=== PATIENT | female | born 2005 | race Caucasian/White ===

== ENCOUNTER 2024-03-05 03:06 | Emergency (ER) | payer BC, SELFPAY ==
[2024-03-05 03:08] VITALS: BP 153/95; PULSE 118; RESP 18; TEMP 37.5; O2SAT 98; BMI 37.4
[2024-03-05 03:18] VITALS: BP 153/95; PULSE 101; O2SAT 100
[2024-03-05] MEDS: ONDANSETRON 4MG/2ML VIAL 4 MG IV (03:40)
[2024-03-05] MEDS: LACTATED RINGERS 1000ML 1,000 ML 999 ML IV (03:40)
[2024-03-05 03:47] LABS: Basophils # 0.2 K/mm3 (0-0.2); Basophils % 3.2 % (0.1-2.0); Eosinophils # 0.1 K/mm3 (0.0-0.4); Eosinophils % 1.4 % (0.1-12.0); Lymphocytes # 2.5 K/mm3 (0.7-4.5); Lymphocytes % 43.1 % (10-50); Mean Corpuscular HGB Conc 35.2 g/dL (31.8-35.4); Mean Corpuscular Hemoglobin 30.7 pg (27.0-31.2); Mean Corpuscular Volume 87.2 fl (81-99); Mean Platelet Volume 7.4 fl (7.4-10.4); Monocytes # 0.4 K/mm3 (0.1-1.0); Monocytes % 7.2 % (1.7-9.3); Neutrophils # 2.6 K/mm3 (1.8-7.8); Neutrophils % 45.1 % (37.0-80.0); Platelet Count 195 K/mm3 (142-424); Red Blood Count 4.25 M/mm3 (4.20-5.40); Red Cell Distribution Width 14.2 % (11.5-17.5); White Blood Count 5.8 K/mm3 (4.8-10.8)
[2024-03-05 03:50] LABS: Albumin Level 3.7 g/dl (3.5-5.0); Chloride 109 mmol/L (98-107)
[2024-03-05 03:51] LABS: Potassium 3.4 mmoL/L (3.5-5.1); Sodium 135 mmol/L (136-145)
[2024-03-05 03:52] LABS: Microscopic, Urine URINE MICROSCOPIC (MICROSCOPIC)
[2024-03-05 03:53] LABS: Alanine Aminotransferase 28 U/L (12-78); Anion Gap 7.4 mEq/L (5-15); Aspartate Amino Transferase 28 U/L (14-36); Blood Urea Nitrogen 9 mg/dl (7-17); Carbon Dioxide 22 mmol/L (22.0-30.0); Creatinine Clearance Estimated 232 mL/min (50-200); Estimated Glomerular Filt Rate 126 ml/min (>60); GFR (African American) 153 ML/MIN (>60)
[2024-03-05 03:54] LABS: Alkaline Phosphatase 64 U/L (38-126); Bilirubin,Total 0.7 mg/dl (0.2-1.3); Calcium 8.4 mg/dl (8.4-10.2); Glucose 93 mg/dl (74-100); Total Protein,Serum 6.4 g/dl (6.3-8.2)
[2024-03-05 03:54] LABS: Bilirubin,Urine Negative (Negative); Blood, Urine Negative (Negative); Glucose,Urine (UA) Negative (Negative); Ketones,Urine Negative (Negative); Leukocyte Esterase,Urine 1+ (Negative); Nitrate,Urine Negative (Negative); Protein,Urine Negative (Negative); Specific Gravity, Urine 1.015 (1.005-1.030)
[2024-03-05 03:56] LABS: Appearance,Urine Slightly Cloudy (Clear); Color,Urine Yellow (Yellow)
[2024-03-05 03:56] LABS: HCG Qualitative, Serum Negative (Negative)
[2024-03-05 04:00] VITALS: BP 138/86; PULSE 97; O2SAT 99
--- NOTE | 2024-03-05 04:01 | [facility].EDGENADL ---
Discharge Plan Disposition Patient Disposition: Home, Self-Care Condition: Good Referrals Follow up/Referrals: Provider,Referral, [Primary Care Provider] - See instructions Activity Restrictions/Add. Instructions Additional Instructions/Restrictions: You were evaluated in the ER. You are appropriate for discharge at this time. Please make an appointment with your primary care physician for reevaluation in 2-3 days. Take Tylenol, ibuprofen if needed for pain. Do not exceed the recommended dose on the bottle. Drink plenty of water. Return to the ER with new, worsening, or otherwise concerning symptoms. Clinical Impressions Clinical Impression: Left flank pain Print Language Print Language: [place] Discharge ED Provider: Juni Mckeon General Adult HPI General Chief complaint: Back Pain/Injury Stated complaint: dizzy, cold chills, abd pain, weakness Time Seen by Provider: 03/05/24 03:11 Mode of Arrival: Ambulatory Source of Information: Patient Limitations: No Limitations Description of Symptoms (Recalled from ER Triage Doc. 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 Patient states that she reports that she completed antibiotics approximately one week ago and has had lightheadedness, weakness, nausea, chills, and left lower abdominal tenderness and left flank intermittent sharp pain. Patient reports she has never had dysuria, but continues to have dark colored urine. History of Present Illness HPI narrative: 19-year-old female presents to the ER for concerns of generalized malaise, left flank pain. Patient denies any abdominal pain but points to her left lateral flank and left low back indicating where she has intermittent sharp pains. Patient states she has been having chills but no documented fevers. She is worried she is dehydrated because her urine has been dark. No other associated symptoms. No other concerns at this time. Related Data Allergies Allergy/AdvReac Type Severity Reaction Status Date / Time No Known Allergies Allergy Verified 03/05/24 03:31 [facility] Disclaimer: The information contained in this section may have been updated after the patient was seen, as this information can be updated by other users. Medical History (Updated 03/05/24 @ 05:55 by Juni Mckeon MD) Hypertension Social History Smoking Status: Never smoker alcohol intake: never current occupational status: other Travel in the last 8 weeks: None ROS Obtained: Yes All systems reviewed & no additional complaints except as documented Constitutional Constitutional: Denies chills, Denies fever(s), Denies headache(s) and Denies weakness Eyes Eyes: Denies change in vision ENT Ears, Nose, Mouth, and Throat: Denies dizziness, Denies headache(s), Denies nasal congestion and Denies sore throat Cardiovascular Cardiovascular: Denies chest pain, Denies dyspnea and Denies leg edema Respiratory Respiratory: Denies cough and Denies dyspnea Gastrointestinal Gastrointestingal: Denies constipation, diarrhea, nausea or vomiting Genitourinary Female Genitourinary: Denies dysuria and Reports flank pain Musculoskeletal Musculoskeletal: Denies arthralgias, Denies myalgias, Denies numbness and Denies tingling Integumentary/Breasts Skin/Breast: Denies change in pigmentation Neurologic Neurologic: Denies dizziness, Denies headache(s), Denies numbness, Denies tingling and Denies weakness Physical Exam General General appearance: alert, in no apparent distress and obese Head Head exam: atraumatic and normocephalic Eye Eye exam: Present PERRL and EOMI ENT ENT exam: Present mucous membranes moist Neck Neck exam: Present normal inspection and full ROM Chest Chest inspection: Present symmetric chest wall rise Respiratory Respiratory exam: Present normal lung sounds bilaterally; Absent respiratory distress, wheezes or stridor Cardiovascular Cardiovascular exam: Present normal rhythm and tachycardia Abdominal Exam Abdominal exam: Present soft; Absent distention, tenderness, guarding or rebound Extremities Exam Extremities exam: Present full ROM Back Exam Back exam: Present full ROM and tenderness (Left lumbar paraspinal discomfort without findings of injury); Absent CVA tenderness (R) or CVA tenderness (L) Neurological Exam Neurological exam: Present alert and oriented X3; Absent motor sensory deficit Psychiatric Psychiatric exam: Present normal affect and normal mood Skin Skin exam: Present warm and dry Medical Decision Making Binh Inquiry Pt receiving controlled substance: No Vital Signs: 03/05/24 03:08 03/05/24 03:18 03/05/24 04:00 Temperature 99.5 F Temperature Source Oral Pulse Rate 101 H 97 H Pulse Rate [Left Radial] 118 H Respiratory Rate 18 Blood Pressure 153/95 H 138/86 Blood Pressure [Right Arm] 153/95 H Blood Pressure Mean 112 114 Blood Pressure Mean [Right Arm] 114 Blood Pressure Source [Right Arm] Automatic Cuff Blood Pressure Position [Right Arm] Sitting 02 Sat by Pulse Oximetry 98 100 99 Oxygen Delivery Method Room Air Lab Data Lab Results 03/05/24 03:38: WBC 5.8, RBC 4.25, Hgb 13.0, Hct 37.0, MCV 87.2, MCH 30.7, MCHC 35.2, RDW 14.2, Plt Count 195, MPV 7.4, Neut % (Auto) 45.1, Lymph % (Auto) 43.1, [place] % (Auto) 7.2, Eos % (Auto) 1.4, Baso % (Auto) 3.2 H, Neut # (Auto) 2.6, Lymph # (Auto) 2.5, [place] # (Auto) 0.4, Eos # (Auto) 0.1, Baso # (Auto) 0.2, Sodium 135 L, Potassium 3.4 L, Chloride 109 H, Carbon Dioxide 22, Anion Gap 7.4, BUN 9, Creatinine 0.60, Estimated Creat Clear 232, Estimated GFR 126, Est GFR ( Amer) 153, Glucose 93, Calcium 8.4, Total Bilirubin 0.7, AST 28, ALT 28, Alkaline Phosphatase 64, Total Protein 6.4, Albumin 3.7, Globulin 2.7, Albumin/Globulin Ratio 1.4, Serum HCG, Qual Negative 03/05/24 03:48: Urine Color Yellow, Urine Appearance Slightly cloudy, Urine pH 6.0, Ur Specific Wrens 1.015, Urine Protein Negative, Urine Glucose (UA) Negative, Urine Ketones Negative, Urine Blood Negative, Urine Nitrate Negative, Urine Bilirubin Negative, Urine Urobilinogen 1.0, Ur Leukocyte Esterase 1+ A, Urine RBC None, Urine WBC 3-5, Ur Squamous Epith Cells 3-5, Urine Bacteria 1+ 03/05/24 03:38 03/05/24 03:38 Orders (Tests/Meds): ED MEDICATIONS Generic Name Dose Route Start Last Admin Trade Name Freq PRN Reason Stop Dose Admin Sodium Chloride 10 ml 03/05/24 04:26 03/05/24 04:27 Sodium Chloride 0.9% 10ml Syr (Rad Only) IV 04/04/24 04:25 10 ml NEEDED PRN Administration Maintain IV Site Discontinued Medications Generic Name Dose Route Start Last Admin Trade Name Freq PRN Reason Stop Dose Admin Lactated Ringer's 1,000 mls @ 999 mls/hr 03/05/24 03:23 03/05/24 03:40 Lactated Ringer's 1000 Ml Bag IV 03/05/24 04:23 999 mls/hr .Q1H1M ONE Administration Iopamidol 75 ml 03/05/24 04:26 03/05/24 04:27 Iopamidol-370 (76%);100ml Bottle IV 03/05/24 04:27 75 ml ONCE ONE Administration Ondansetron HCl 4 mg 03/05/24 03:23 03/05/24 03:40 Ondansetron 4mg/2ml Vial IV 03/05/24 03:24 4 mg ONCE ONE Administration ORDERS Category Date Time Status CT abdomen pelvis w con Stat Cat Scan 03/05/24 04:03 Completed CBC w/Auto Diff [Complete Blood Count Auto Diff] Stat Lab 03/05/24 03:38 Completed CMP [Comprehensive Metabolic Panel] Stat Lab 03/05/24 03:38 Completed HCG Qualitative, Serum Stat Lab 03/05/24 03:38 Completed Urinalysis and Microscopic Stat Lab 03/05/24 03:48 Completed Urine Culture Stat Micro 03/05/24 03:48 Received Medical Decision Narrative: In summary, this 18-year-old female presents to the emergency department today with left flank pain. On initial evaluation patient is hemodynamically stable, afebrile, patient has mild lumbar left lumbar paraspinal tenderness to palpation, no obvious CVA tenderness, patient does not have localizing tenderness, rebound, or guarding in the abdomen. Differential diagnosis includes but is not limited to urinary tract infection, pyelonephritis, kidney stone, considered colitis, electrolyte abnormality, dehydration, viral syndrome. Based on these concerns, I ordered serum labs, urine studies, CT imaging. Patient received IV fluids. Labs personally reviewed demonstrate no leukocytosis or anemia, platelets normal, no actionable abnormalities on CMP, good kidney function, no findings of liver dysfunction, UA contaminated with squamous cells, not consistent with findings of infection with only 1+ bacteria, trace whites, and negative nitrates. CT abdomen personally interpreted does not demonstrate any acute intra-abdominal pathology. See radiology read for final interpretation. On reassessment patient reports feeling improved. Her tachycardia has improved and she reports improvement in pain. Workup is reassuring though I do not have an exact cause of her discomfort. I believe she is appropriate for discharge at this time. Patient was given instructions on symptomatic management, follow up instructions, and return precautions for the emergency department. Patient indicated understanding and was discharged in stable condition. Critical Care Critical Care Time Critical Care Time: No
--- NOTE | 2024-03-05 04:03 | CT_ITS ---
PROCEDURE INFORMATION: Exam: CT Abdomen And Pelvis With Contrast Exam date and time: 03/05/2024 4:09 AM Age: 18 years old Clinical indication: Abdominal pain; Additional info: Left flank pain TECHNIQUE: Imaging protocol: Computed tomography of the abdomen and pelvis with contrast. Radiation optimization: All CT scans at this facility use at least one of these dose optimization techniques: automated exposure control; mA and/or kV adjustment per patient size (includes targeted exams where dose is matched to clinical indication); or iterative reconstruction. Contrast material: ISOVUE; Contrast volume: 75 ml; Contrast route: IV; COMPARISON: No relevant prior studies available. FINDINGS: Liver: Mild fatty infiltration of the liver along the falciform ligament. Gallbladder and biliary ducts: Contracted gallbladder. Pancreas: Normal. No ductal dilation. Spleen: Normal. No splenomegaly. Adrenal glands: Normal. No mass. Kidneys and ureters: Normal. No hydronephrosis. Stomach and bowel: Unremarkable. No obstruction. No mucosal thickening. Appendix: Unremarkable appendix. Intraperitoneal space: Unremarkable. No free air. No significant fluid collection. Vasculature: Unremarkable. No abdominal aortic aneurysm. Lymph nodes: Unremarkable. No enlarged lymph nodes. Urinary bladder: Unremarkable as visualized. Reproductive: Unremarkable as visualized. Bones/joints: Unremarkable. No acute fracture. Soft tissues: Tiny fat containing umbilical hernia. IMPRESSION: No acute findings.
[2024-03-05 04:13] LABS: Bacteria,Urine 1+ /lpf
[2024-03-05 04:18] LABS: Albumin/Globulin Ratio 1.4 (1.1-1.8); Globulin 2.7 g/dL (1.3-3.2)
[2024-03-05] MEDS: IOPAMIDOL-370 (76%);100ML BOTTLE 75 ML IV (04:27)
[2024-03-05] MEDS: SODIUM CHLORIDE 0.9% 10ML SYR (RAD ONLY) 10 ML IV (04:27)
[2024-03-05 06:11] VITALS: BP 124/69; PULSE 91; RESP 18; TEMP 37.5; O2SAT 99
== END 2024-03-05 06:12 | disposition home or self-care (01) ==
PROVIDERS: Emergency Provider Emergency Medicine
DX: R10.32 Left lower quadrant pain (principal); R53.81 Other malaise; B96.89 Other specified bacterial agents as the cause of diseases classified elsewhere
CPT/HCPCS: 74177; 80053; 81001; 84703; 85025; 87086; 96361; 96374; 99284; J2405; J7120; Q9967